=== PATIENT | male | born 1955 | race Caucasian/White ===

== ENCOUNTER 2022-10-20 05:50 | Day surgery (SDC) | payer OTHER ==
[~2022-10-20] VITALS: Ht 175.3 cm; Wt 131.5 kg
[~2022-10-20 05:50] MED LIST: FINASTERIDE1 MG PO; GOCOVRI68.5 MG PO; INDERAL LA80 MG PO; LOTREL 10-20 M1 EACH PO; MIRALAX17 GM PO; RAPAFLO4 MG PO; [UNRECOGNIZED DRUG - OTHER] PF
== END 2022-10-20 16:55 | disposition home or self-care (01) ==
LOC: CIR.AMB 05:50 → O/R 05:50 → SURH 05:50 → EDSTATUS 10:45 → SURH 10:45 → O/R 13:21 → CIR.AMB 16:55
PROVIDERS: ATTEND Urology
DX: N41.1 Chronic prostatitis (principal); N40.0 Benign prostatic hyperplasia without lower urinary tract symptoms; Z20.822 Contact with and (suspected) exposure to COVID-19; Z88.6 Allergy status to analgesic agent; I10 Essential (primary) hypertension; E78.49 Other hyperlipidemia; Z86.16 Personal history of COVID-19

== ENCOUNTER 2022-10-23 10:49 | Emergency (ER) | payer OTHER ==
[~2022-10-23] VITALS: Ht 175.3 cm; Wt 86.2 kg
== END 2022-10-23 12:39 ==
LOC: ER 10:49
DX: N40.0 Benign prostatic hyperplasia without lower urinary tract symptoms (principal); G20 Parkinson's disease; I10 Essential (primary) hypertension; Z88.6 Allergy status to analgesic agent

== ENCOUNTER 2025-08-15 15:57 | Outpatient (CLI) | payer OTHER | END 2025-08-15 16:01 | disposition home or self-care (01) | LOC: TOM 15:57 | PROVIDERS: ATTEND Internal Medicine | DX: R06.02 Shortness of breath (principal); R53.82 Chronic fatigue, unspecified ==